=== PATIENT | male | born 1985 | race Caucasian/White ===

== ENCOUNTER 2023-07-17 12:16 | Outpatient (CLI) | payer BC, SELFPAY ==
--- NOTE | ~2023-07-17 | US_ITS ---
EXAMINATION: US soft tissue head and neck DATE: 07/17/2023 13:28 INDICATION: Left frontal head lump for over a year. Disorder of the skin and subcutaneous tissue. TECHNIQUE: Multiple grayscale and Doppler ultrasound images of the head and neck were obtained. COMPARISON: None FINDINGS: There is no abnormal soft tissue mass in the patient's area of concern. There is prominent bone in the patient's area of concern. IMPRESSION: 1. Prominent bone in the patient's area of concern in the left frontal head, which may be an osteoma. Consider CT. Reviewed, dictated and finalized at location [facility]. IMPRESSION: 1. Prominent bone in the patient's area of concern in the left frontal head, wh ich may be an osteoma. Consider CT.
== END 2023-07-17 12:17 | disposition home or self-care (01) ==
PROVIDERS: PCP Family Medicine; Visit Provider Physician Assistant
DX: L98.9 Disorder of the skin and subcutaneous tissue, unspecified (principal)
CPT/HCPCS: 76536

== ENCOUNTER 2023-07-19 16:31 | Outpatient (CLI) | payer BC, SELFPAY ==
--- NOTE | ~2023-07-19 | CT_ITS ---
EXAMINATION: CT abdomen pelvis wo con DATE: 07/19/2023 16:49 INDICATION: Left flank pain, costovertebral angle tenderness. TECHNIQUE: Computed tomography (CT) of the abdomen and pelvis was performed without intravenous contr ast. Automated exposure control and iterative reconstruction technique were employed. Exam dose: 526 .10 mGy-cm total exam DLP. COMPARISON: None. FINDINGS: The lung bases are clear. Normal heart size. No pericardial or pleural effusion. The liver, gallbladder, bile ducts, spleen, pancreas and pancreatic duct are unremarkable. The spleen measures approximately 12.6 cm vertical dimension, 14 cm being upper limits of normal. Normal morphology of the adrenal glands. No renal mass lesion or urinary tract calculus or hydroureteronephrosis. The urinary bladder and pros gentile gland are unremarkable. Normal appendix. No bowel obstruction, bowel wall thickening, pneumatosis or intraperitoneal free air . Normal caliber of the abdominal aorta. No intraperitoneal or retroperitoneal or pelvic mass lesion or adenopathy or ascites. Included skeletal structures are unremarkable. IMPRESSION: No significant abnormality Reviewed, dictated and finalized at [facility]. Reviewed, dictated and finalized at location L. IMPRESSION: No significant abnormality
== END 2023-07-19 16:32 | disposition home or self-care (01) ==
PROVIDERS: PCP Family Medicine; Visit Provider Physician Assistant
DX: M54.9 Dorsalgia, unspecified (principal); R10.9 Unspecified abdominal pain; R30.0 Dysuria
CPT/HCPCS: 74176

== ENCOUNTER 2023-07-27 08:22 | Outpatient (CLI) | payer BC, SELFPAY ==
--- NOTE | ~2023-07-27 | CT_ITS ---
Contrast enhanced Head CT History: Disorder of bone, skull lesion Technique: Following intravenous administration of 100 cc of Omnipaque 350 contrast material, axial i maging of the brain was performed. Coronal and sagittal reformatted images were constructed. Dose red uction technique was used on this scan by utilizing automated exposure control and iterative reconstr uction technique. The dose-length product (DLP) was 605.33 mGy-cm. Findings: There is no evidence of intracranial hemorrhage, mass lesion, or acute infarct. Brain par enchyma appears normal. The ventricles and subarachnoid spaces are normal in size. The calvarium ap pears normal. The visualized paranasal sinuses and mastoid air cells are clear. No abnormal postcontrast enhancement seen. Impression: No significant abnormality seen. No distinct osseous abnormality clearly identified. Reviewed, dictated and finalized at [facility]. Impression: No significant abnormality seen. No distinct osseous abnormality clearly identi fied.
== END 2023-07-27 08:23 | disposition home or self-care (01) ==
PROVIDERS: PCP Family Medicine; Visit Provider Physician Assistant
DX: M89.9 Disorder of bone, unspecified (principal)
CPT/HCPCS: 70460; Q9967

== ENCOUNTER 2024-10-16 16:30 | Outpatient (CLI) | payer OTHER, SELFPAY ==
--- NOTE | ~2024-10-16 | XR_ITS ---
CHEST RADIOGRAPH, PA AND LATERAL CLINICAL HISTORY: chronic cough x 2 mo . COMPARISON: None available TECHNIQUE: PA and lateral views of the chest. FINDINGS The cardiomediastinal silhouette is unremarkable. The lungs are clear. Visualized osseous structures and soft tissues are unremarkable. IMPRESSION: No focal infiltrate or effusion. Reviewed, dictated and finalized at location A. NG SUPERVISOR
== END 2024-10-16 16:31 | disposition home or self-care (01) ==
LOC: MICIMG 16:31
PROVIDERS: PCP Family Medicine; Visit Provider Physician Assistant
DX: R05.3 Chronic cough (principal)
CPT/HCPCS: 71046